=== PATIENT | male | born 1960 | race African-American/Black ===

== ENCOUNTER 2016-06-17 16:12 | Emergency (ER) | payer OTHER ==
[~2016-06-17] VITALS: Ht 162.6 cm; Wt 72.0 kg
[2016-06-17] MEDS ORDERED: HYDR25TA PO (17:14)
[2016-06-17] MEDS ORDERED: CLON0.2T PO (17:14)
[2016-06-17] MEDS ORDERED: ACETAMINOPHEN 325MG TABLET PO ONE (22:15)
[2016-06-17 22:20] VITALS: BP 148/78
== END 2016-06-17 22:50 | disposition home or self-care (01) ==
LOC: ER 16:41
DX: M21.332 Wrist drop, left wrist (principal); M25.532 Pain in left wrist; I10 Essential (primary) hypertension; E11.9 Type 2 diabetes mellitus without complications; R20.0 Anesthesia of skin
CPT/HCPCS: 29125; 93971; 99284

== ENCOUNTER 2016-10-09 00:32 | Emergency (ER) | payer OTHER ==
[~2016-10-09] VITALS: Ht 167.6 cm; Wt 70.4 kg
[~2016-10-09 00:32] MED LIST: CLON0.2T PO; HYDR25TA PO
[2016-10-09 12:59] LABS: BASOPHILS % 0.4 % (0.0-2.0); EOSINOPHILS % 0.6 % (0.0-5.0); HEMATOCRIT. 39.8 % (42.0-52.0); HEMOGLOBIN. 13.2 g/dL (14.0-18.0); MEAN CORPUSCULAR HEMOGLOBIN 26.5 pg (28.0-32.0); MEAN CORPUSCULAR VOLUME 79.6 fL (80.0-94.0); MEAN PLATELET VOLUME 8.4 fl (7.4-10.4); MONOCYTES % 11.3 % (2.0-8.0); NEUTROPHILS % 63.7 % (40.0-76.0); PLATELET 191 x1000/uL (130-400); RED CELL DISTRIBUTION WIDTH 15.8 % (11.6-14.6)
[2016-10-09] MEDS ORDERED: KETOROLAC 60MG/2ML VIAL IM ONE (13:45)
[2016-10-09 14:02] VITALS: BP 152/83
== END 2016-10-09 14:22 | disposition left against medical advice (07) ==
LOC: ER 00:32
DX: M25.512 Pain in left shoulder (principal); F17.200 Nicotine dependence, unspecified, uncomplicated; F11.10 Opioid abuse, uncomplicated; X58.XXXA Exposure to other specified factors, initial encounter; Y93.89 Activity, other specified; Y92.89 Other specified places as the place of occurrence of the external cause; Y99.8 Other external cause status
CPT/HCPCS: 36415; 73030; 85025; 85651; 86140; 96372; 99285; J1885; J7030

== ENCOUNTER 2016-10-17 09:31 | Emergency (ER) | payer OTHER ==
[~2016-10-17] VITALS: Ht 167.6 cm; Wt 70.0 kg
[2016-10-17] MEDS ORDERED: CEPHALEXIN 500MG CAPSULE PO ONE (11:00)
[2016-10-17] MEDS ORDERED: KETOROLAC 60MG/2ML VIAL IM ONE (11:00)
[2016-10-17] MEDS ORDERED: CLONIDINE 0.1MG TABLET PO ONE (11:30)
[2016-10-17 12:18] VITALS: BP 157/99
== END 2016-10-17 13:55 | disposition home or self-care (01) ==
LOC: ER 13:50
DX: L02.414 Cutaneous abscess of left upper limb (principal); I10 Essential (primary) hypertension; F17.210 Nicotine dependence, cigarettes, uncomplicated; F11.10 Opioid abuse, uncomplicated; Z98.890 Other specified postprocedural states
CPT/HCPCS: 96372; 99283; J1885